=== PATIENT | female | born 1970 | race Caucasian/White ===

== ENCOUNTER → 2018-02-06 | Outpatient (CLI) | payer BC | LOC: GMATM 17:00 | PROVIDERS: ATTEND Nurse Practitioner Family | DX: R20.9 Unspecified disturbances of skin sensation (principal) ==

== ENCOUNTER → 2018-02-14 | Outpatient (CLI) | payer BC | LOC: GMATM 17:54 | PROVIDERS: ATTEND Nurse Practitioner Family | DX: E53.9 Vitamin B deficiency, unspecified (principal) ==

== ENCOUNTER → 2018-02-20 | Outpatient (CLI) | payer BC | LOC: GMAM 16:39 | PROVIDERS: ATTEND Family Medicine | DX: E07.9 Disorder of thyroid, unspecified (principal) ==

== ENCOUNTER → 2018-03-05 | Outpatient (CLI) | payer BC ==
--- NOTE | 2018-03-05 15:38 | US ---
THYROID ULTRASOUND CLINICAL INFORMATION: Thyroid (nodule) disorder unspecified TECHNIQUE: Routine transcutaneous scannin-D and Doppler modes. COMPARISON: Baseline study at this facility. FINDINGS: Thyroid size: Right 4.4 x 1.9 x 1.6 cm. Left 5.0 x 1.6 x 1.6 cm. Isthmus 3.4 mm thickness. Texture: Heterogeneous Estimated total number of nodules >/=1 cm: 2 Number of spongiform nodules >/=2 cm not described below (TR1): 0 Number of mixed cystic and solid nodules >/=1.5 cm not described below (TR2): 0 Nodule #: 1 Maximum size: 1.5 cm; All dimensions 1.1 x 0.9 cm Location: right; mid Composition: solid/almost completely solid (2) Echogenicity: hypoechoic (2) Shape: not [id number] (0) Margins: ill-defined (0) Echogenic foci: none (0) ACR TI-RADS total points: 4. ACR TI-RADS risk category: TR4 (4-6 points) ACR TI-RADS recommendation: Ultrasound-guided fine needle aspiration Nodule #: 2 Maximum size: 0.8 cm; All dimensions 0.6 x 0.5 cm Location: right; lower Composition: solid/almost completely solid (2) Echogenicity: hypoechoic (2) Shape: not [id number] (0) Margins: smooth (0) Echogenic foci: none (0) ACR TI-RADS total points: 4. ACR TI-RADS risk category: TR4 (4-6 points) ACR TI-RADS recommendation: No further follow-up Nodule #: 3 Maximum size: 1.4 cm; All dimensions 0.8 x 0.6 cm Location: left; lower Composition: solid/almost completely solid (2) Echogenicity: hypoechoic (2) Shape: not [id number] (0) Margins: smooth (0) Echogenic foci: none (0) ACR TI-RADS total points: 4 ACR TI-RADS risk category: TR4 (4-6 points) ACR TI-RADS recommendation: No further follow-up Scanning of the adjacent soft tissues shows no distinct solid mass or cyst. No parenchymal edema or large calcifications. No abnormal vascularity. Overlying skin is unremarkable. IMPRESSION: 1. Hypoechoic solid mass (nodule #1) in the mid right lobe with ACR TI-RADS risk category TR 4. With greatest diameter 1.5 cm, ultrasound-guided thyroid fine-needle aspiration is recommended. Please see ACR TI-RADS recommendations below.* 2. Hypoechoic solid mass (nodule #3) in the lower left lobe with ACR TI-RADS risk category TR 4. With greatest diameter 1.4 cm, ultrasound follow-up in one year is recommended. 3. Hypoechoic solid mass (nodule #2) in the lower right lobe, with ACR TI-RADS risk category TR 4. With greatest diameter less than 1 cm, no ultrasound follow-up is recommended. 4. Soft tissue surrounding the thyroid gland are unremarkable. *ACR TI-RADS recommendations: TR5 (>/=7 points) - FNA if >/=1 cm, follow-up if 0.5 - 0.9 cm every year for 5 years TR4 (4-6 points) - FNA if >/=1.5 cm, follow-up if 1 - 1.4 cm in 1, 2, 3 and 5 years TR3 (3 points) - FNA if >/=2.5 cm, follow -up if 1.5 - 2.4 cm in 1, 3 and 5 years TR2 (2 points) and TR1 (0 points) - No FNA or follow-up * ACR TI-RADS recommends that no more than two nodules with the highest ACR TI-RADS total point should be biopsied and no more than four nodules should be followed. Electronically signed by: Enrique Hebert MD 03/05/2018 3:36 PM CDT
== END ==
LOC: US 10:38
PROVIDERS: ATTEND Family Medicine
DX: E07.9 Disorder of thyroid, unspecified (principal)

== ENCOUNTER → 2018-03-07 | Outpatient (CLI) | payer BC | LOC: LAB.O 12:25 | PROVIDERS: ATTEND Psychiatry & Neurology Neurology | DX: M45.9 Ankylosing spondylitis of unspecified sites in spine (principal); G37.9 Demyelinating disease of central nervous system, unspecified; G93.3 Postviral and related fatigue syndromes; G61.81 Chronic inflammatory demyelinating polyneuritis; L40.59 Other psoriatic arthropathy; G25.89 Other specified extrapyramidal and movement disorders; M06.9 Rheumatoid arthritis, unspecified; M35.00 Sjogren syndrome, unspecified ==

== ENCOUNTER → 2018-03-28 | Outpatient (CLI) | payer BC ==
--- NOTE | 2018-03-29 16:39 | NM ---
EXAM DESCRIPTION: Thyroid Uptake Scan CLINICAL HISTORY: MULTINODULAR GOITER. Abnormal white blood count. 1.5 cm nodule in the right lobe and 1.4 cm nodule in the left lobe. COMPARISON: Thyroid ultrasound 03/05/2018. TECHNIQUE: Patient was given 233.8 uCi mCi of iodine 123 radiopharmaceutical orally. Anterior and oblique gamma camera images were obtained of the thyroid gland at 24 hr. Activity was measured at 24 hr. Repeat anterior and oblique gamma camera images also. FINDINGS: Activity in the thyroid gland is slightly more left than right, interpreted to be related to left lobe being slightly larger. No significantly "hot" or "cold" regions in either lobe. 24-hour iodine uptake is 36.9%. IMPRESSION: Slightly more activity in the left lobe and in the right lobe which is interpreted to be related to size of the lobe. No focal areas of increased or decreased activity in either lobe. 24-hour uptake is slightly elevated. Electronically signed by: Enrique Hebert MD 03/29/2018 4:37 PM CDT
== END ==
LOC: NM 09:13
PROVIDERS: ATTEND Internal Medicine Endocrinology, Diabetes & Metabolism
DX: E04.2 Nontoxic multinodular goiter (principal)
CPT/HCPCS: 78012; A9516

== ENCOUNTER → 2018-05-10 | Outpatient (CLI) | payer BC | LOC: GMAM 12:25 | PROVIDERS: ATTEND Family Medicine | DX: E07.9 Disorder of thyroid, unspecified (principal); E53.9 Vitamin B deficiency, unspecified ==

== ENCOUNTER → 2018-07-04 | Outpatient (CLI) | payer BC ==
--- NOTE | 2018-07-08 15:31 | MAM ---
EXAM DESCRIPTION: 3D Screening BILATERAL : Digital Mammography. CLINICAL HISTORY: 47 years Female ANNUAL SCREENING . "Knots in my breast." No personal history or family history breast cancer. Remote family history of ovarian cancer. Childbirth. Premenopausal. No HRT.. Lifetime risk of developing breast cancer (Tyrer-Cuzick model) is 11.8 %. COMPARISON: prior. No prior reports available. TECHNIQUE: Bilateral CC and MLO projection full-field images, Digital tomosynthesis mammographic technique. Bilateral digital 2-D full-field MLO images. CAD not utilized. FINDINGS: The breast parenchymal density pattern is: Extremely dense breast tissue, which lowers the sensitivity of mammography. No skin thickening or nipple retraction. Bilateral accessory breast tissue in the axilla. There is a focal asymmetry at the 800 clock position of the posterior third of the right breast approximately 6 cm from the nipple. Scattered solitary microcalcifications. Focal asymmetry versus mass density in the lower inner quadrant of the left breast approximately 4 cm from the nipple at the 800 clock position. IMPRESSION: BI-RADS CATEGORY: 0 - INCOMPLETE- Need additional imaging evaluation. FOLLOW-UP: Recall for additional imaging: Bilateral diagnostic digital full-field images and digital spot compression images bilaterally. Bilateral targeted breast ultrasound if indicated by diagnostic images.. Written communication concerning the IMPRESSION and Follow-up, will be mailed to the patient and referring health care provider. Electronically signed by: Enrique Hebert MD 07/08/2018 3:29 PM CDT
== END ==
LOC: MERGE 08:10 → MAMMO 08:10
PROVIDERS: ATTEND Family Medicine
DX: Z12.31 Encounter for screening mammogram for malignant neoplasm of breast (principal)

== ENCOUNTER → 2018-07-24 | Outpatient (CLI) | payer BC | LOC: GMAM 10:39 | PROVIDERS: ATTEND Family Medicine | DX: E04.1 Nontoxic single thyroid nodule (principal) ==

== ENCOUNTER → 2018-08-01 | Outpatient (CLI) | payer BC ==
--- NOTE | 2018-08-01 11:12 | US ---
EXAM DESCRIPTION: Breast,Bilateral: Ultrasound CLINICAL HISTORY: 47 yearsFemaleABNORMAL MAMMO COMPARISON: Digital diagnostic tomosynthesis bilateral breast on this visit. Bilateral screening digital breast tomosynthesis 07/04/2018. TECHNIQUE: Transcutaneous scanning of the bilateral breast utilizing shepherd-scale and Doppler modes. Scanning performed by the recreation instructor and Dr. Hebert. FINDINGS: Scanning of the lateral right breast with emphasis at the 900 clock position. Scanning lower inner quadrant anterior left breast. Also scanning of the right axilla. Multiple anechoic structures with circumscribed margins thin moran and posterior enhancement features at the 900 clock position of the right breast approximately 7 cm from the nipple. Some cysts demonstrate the gravity dependent debris. There is also a hypoechoic solid mass measuring 1.1 x 1.2 cm abutting a cyst with circumscribed moran, parallel orientation and posterior shadowing. Nonvascular. This could represent a complicated cyst or fibroadenoma. No parenchymal edema or large calcifications. No overlying skin changes or abnormal vascularity. In the left breast, multiple anechoic structures with circumscribed moran, parallel orientation, posterior enhancement consistent with cysts. All demonstrate posterior enhancement features. In the left breast in right exit well, no distinct abnormal solid masses or abnormal wall thickening, no parenchymal edema or large calcifications. No overlying skin changes and no abnormal enhancement. In the subcutaneous adipose tissue of the axilla, a heterogeneous oval-shaped mass isoechoic to the surrounding adipose tissue with parallel features and no posterior echo features. Dimensions are 1.8 x 1.5 x 1.0 cm. No large calcifications, and no overlying skin changes, no distinct cysts or abnormal vascularity. IMPRESSION: Probably benign lesion. Assessment: 1. Bi-Rads Category 3: Probably Benign Findings. 2. Please refer to bilateral diagnostic digital breast tomosynthesis examination on this visit. FOLLOW-UP: Six-month digital diagnostic mammography and targeted ultrasound right breast. The FINDINGS and the FOLLOW-UP plan were reviewed in person with the patient after the examination. Written communication explaining the IMPRESSION and FOLLOW-UP will be mailed to the patient and referring care provider. Electronically signed by: Enrique Hebert MD 08/01/2018 11:10 AM CDT
--- NOTE | 2018-08-01 15:46 | MAM ---
EXAM DESCRIPTION: 3D Diagnostic, Bilateral: Digital Mammography CLINICAL HISTORY: 47 yearsFemaleABN MAMMO bilateral focal asymmetries and/or mass densities in the breasts on screening examination. Patient also complains of mass in the right axilla. COMPARISON: Bilateral screening digital breast tomosynthesis 07/04/2018.. TECHNIQUE: Bilateral CC LM MLO projection full-field images, digital mammographic tomosynthesis technique. Bilateral 2-D full-field LM images. Bilateral 2-D digital spot magnification images. CAD not utilized. FINDINGS: The breast parenchymal density pattern is: Extremely dense breast tissue, which lowers the sensitivity of mammography. No skin thickening or nipple retraction magnification views show bilateral groups of microcalcifications are predominantly in the anterior breasts. Again noted are well-circumscribed mass densities on the LM tomosynthesis images. No mammographic abnormality in the right axilla. Ultrasound: Scanning of the lateral right breast with emphasis at the 900 clock position. Scanning lower inner quadrant anterior left breast. Also scanning of the right axilla. Multiple anechoic structures with circumscribed margins thin moran and posterior enhancement features at the 900 clock position of the right breast approximately 7 cm from the nipple. Some cysts demonstrate the gravity dependent debris. There is also a hypoechoic solid mass measuring 1.1 x 1.2 cm abutting a cyst with circumscribed moran, parallel orientation and posterior shadowing. Nonvascular. This could represent a complicated cyst or fibroadenoma. No parenchymal edema or large calcifications. No overlying skin changes or abnormal vascularity. In the left breast, multiple anechoic structures with circumscribed moran, parallel orientation, posterior enhancement consistent with cysts. All demonstrate posterior enhancement features. In the left breast in right exit well, no distinct abnormal solid masses or abnormal wall thickening, no parenchymal edema or large calcifications. No overlying skin changes and no abnormal enhancement. In the subcutaneous adipose tissue of the axilla, a heterogeneous oval-shaped mass isoechoic to the surrounding adipose tissue with parallel features and no posterior echo features. Dimensions are 1.8 x 1.5 x 1.0 cm. No large calcifications, and no overlying skin changes, no distinct cysts or abnormal vascularity. IMPRESSION: Probably benign. ASSESSMENT: BI-RADS CATEGORY: 3 - PROBABLY BENIGN. MANAGEMENT: Short interval (6-month) follow-up digital mammography and 6 months continued surveillance right breast. The FINDINGS and the FOLLOW-UP plan were reviewed in person with the patient after the examination. Written communication explaining the IMPRESSION and FOLLOW-UP will be mailed to the patient and referring care provider. Electronically signed by: Enrique Hebert MD 08/01/2018 3:44 PM CDT
== END ==
LOC: MERGE 07-31 08:30 → MAMMO 08:33
PROVIDERS: ATTEND Family Medicine
DX: R92.8 Other abnormal and inconclusive findings on diagnostic imaging of breast (principal)
CPT/HCPCS: 76641; 77066; G0279